=== PATIENT | male | born 1955 ===

== ENCOUNTER 2017-03-12 15:16 | Emergency (ER) | payer MEDICAID ==
--- NOTE | 2017-03-12 16:25 | C.PDOC ---
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 He has never had urinary retention in the past, however reports a history of trouble urinating recently. Pt drank a lot for an US this morning at [facility], ordered by Dr. Warner, and was unable to urinate since. No back pain, fever, or other complaint. Has an appointment with urologist later this month. Patient has a history of HTN and reports that he has been compliant with his regimen. Time Seen by Provider: 03/12/17 16:06 Chief Complaint (Nursing): Male Genitourinary History Per: Patient History/Exam Limitations: no limitations Onset/Duration Of Symptoms: Hrs (5) Current Symptoms Are (Timing): Still Present Severity: Moderate Quality Of Discomfort: Pressure Associated Symptoms: Urinary Symptoms Alleviating Factors: None Recent travel outside of the [place]: No Additional History Per: Patient Past Medical History Vital Signs: Last Vital Signs Temp 98.5 F 03/12/17 15:46 Pulse 79 03/12/17 15:46 Resp 19 03/12/17 15:46 BP 215/115 H 03/12/17 15:46 Pulse Ox 95 03/12/17 16:28 - Medical History PMH: Benign Prostatic Hyperplasia, HTN Surgical History: No Surg Hx Family History: States: Unknown Family Hx - Social History Hx Alcohol Use: No Hx Substance Use: No - Immunization History Hx Tetanus Toxoid Vaccination: No Hx Influenza Vaccination: No Hx Pneumococcal Vaccination: No Review Of Systems Except As Marked, All Systems Reviewed And Found Negative. Gastrointestinal: Positive for: Abdominal Pain Genitourinary: Positive for: Other (Unable to urinate) Physical Exam - Physical Exam Appears: Well, Non-toxic, Other (uncomfortable) Skin: Normal Color, Warm, Dry Head: Atraumatic, Normacephalic Eye(s): bilateral: Normal Inspection, EOMI Nose: Normal Oral Mucosa: Moist Neck: Normal ROM, Supple Chest: Symmetrical Cardiovascular: Rhythm Regular Respiratory: Normal Breath Sounds Gastrointestinal/Abdominal: Bowel Sounds (normal), Soft, Tenderness (suprapubic) , Distention (suprapubic), No Guarding, No Rebound Extremity: Normal ROM Neurological/Psych: Oriented x3 ED Course And Treatment O2 Sat by Pulse Oximetry: 95 Progress Note: Impression: Urinary retention. Plan: - Place hazel catheter. - UA. Upon placement of the catheter 1100 mL of urine was drained. He is feeling much better now. Case discussedwith Dr Bautista who notes pt can be discharged with a leg bag to . with his urologist. Disposition Doctor Will See Patient In The: Office Counseled Patient/Family Regarding: Studies Performed, Diagnosis, Need For Followup - Disposition Referrals: Zachariah Bautista MD [Staff Provider] - Deyanira Ng MD [Staff Provider] - Disposition: HOME/ ROUTINE Disposition Time: 17:18 Condition: STABLE Additional Instructions: Follow up with your primary medical doctor or clinic in 2-5 days for further evaluation. Take medications as prescribed. Return to the emergency department at any time if symptoms persist or worsen. Instructions: Urinary Retention in Men (ED) Forms: [facility] (Maori) Print Language: BOLIVIAN - Clinical Impression Clinical Impression: Urinary retention - Scribe Statement The provider has reviewed the documentation as recorded by the Scribe (Mayte Yi)
[2017-03-12 16:46] LABS: URINE BILIRUBIN NEGATIVE (NEGATIVE); URINE BLOOD 3+ (NEGATIVE); URINE CLARITY Clear (Clear); URINE COLOR Colorless (YELLOW); URINE GLUCOSE (UA) NORMAL (Normal); URINE LEUKOCYTE ESTERASE NEG Leu/uL (Negative); URINE NITRATE NEGATIVE (NEGATIVE); URINE PROTEIN NEGATIVE (NEGATIVE); URINE UROBILINOGEN NORMAL mg/dL (0.2-1.0)
[2017-03-12 18:31] VITALS: BP 158/78; PULSE 76; RESP 18; TEMP 97.9; O2SAT 98
== END 2017-03-12 18:31 | disposition home or self-care (01) ==
LOC: C.ER 15:16
DX: R33.9 Retention of urine, unspecified (principal)

== ENCOUNTER 2017-03-20 11:14 | Day surgery (SDC) | payer MEDICAID ==
[2017-03-19 10:08] VITALS: BMI 28.7
[2017-03-20 12:15] VITALS: BP 134/87; PULSE 103; RESP 20; TEMP 98.2; O2SAT 94
--- NOTE | 2017-03-20 20:44 | CON ---
DATE: HISTORY OF PRESENT ILLNESS: The patient was on the schedule for cystoscopy. When he came to the OR, he has a temperature 101 and severe lower abdominal pain and bleeding from the Perez. The Perez was not functioning with lower abdominal pain, so the Perez catheter changed and new Perez #16 inserted, drained 400 mL of cloudy urine. Urine sent for culture. The patient has temperature, which I will cancel the case for today for the cystoscope and I gave him Cipro and Ceftin. Urine culture done. If he has more temperature, we will send him to the ER. Otherwise, I will follow him to do procedure when he is more stable. Bernadette Lr MD
== END 2017-03-20 15:17 | disposition home or self-care (01) ==
LOC: C.SDS 11:14
PROVIDERS: ATTEND Specialist
DX: R33.9 Retention of urine, unspecified (principal); N40.1 Benign prostatic hyperplasia with lower urinary tract symptoms; Z53.8 Procedure and treatment not carried out for other reasons

== ENCOUNTER 2017-03-26 08:21 | Day surgery (SDC) | payer MEDICAID ==
[2017-03-19 10:07] VITALS: BMI 28.7
[2017-03-26] MEDS ORDERED: Midazolam 2 MG/2 ML VIAL ONE (09:52)
[2017-03-26] MEDS ORDERED: Propofol 10 mg/ml Inj (20 ML) ONE (09:52)
[2017-03-26] MEDS ORDERED: Lactated Ringer's 1,000 ML IV ONE (10:00)
[2017-03-26] MEDS ORDERED: Lidocaine 2% Jelly (Uro-Jet) ONE (10:02)
[2017-03-26] MEDS ORDERED: cefTRIAXone 2 GM in Sodium Chloride 0.9% 100 ML IVPB SCH (11:00)
[2017-03-26 11:06] LABS: BASO # 0.1 K/uL (0.0-0.2); BASO % 1.3 % (0.0-2.0); EOS # 0.1 K/uL (0.0-0.7); EOS % 1.4 % (0.0-4.0); HEMOGLOBIN 14.2 g/dL (12.0-18.0); LYMPH % 19.3 % (20.0-40.0); MEAN CELL VOLUME 90.9 fL (80.0-94.0); MEAN CORPUSCULAR HEMOGLOBIN 31.1 pg (27.0-31.0); MEAN CORPUSCULAR HGB CONC 34.2 g/dL (33.0-37.0); MEAN PLATELET VOLUME 8.5 fL (7.2-11.7); MONO # 0.5 K/uL (0.0-0.8); NEUT # 3.6 K/uL (1.8-7.0); RBC 4.57 Mil/uL (4.40-5.90); RED CELL DISTRIBUTION WIDTH 13.6 % (11.5-14.5); WHITE BLOOD COUNT 5.4 K/uL (4.8-10.8)
[2017-03-26 11:57] VITALS: RESP 16
[2017-03-26 12:35] VITALS: BP 139/84; PULSE 85; TEMP 98; O2SAT 98
--- NOTE | 2017-04-05 19:32 | OP ---
PROCEDURE DATE: PREOPERATIVE DIAGNOSES: Prostatic hypertrophy, urinary retention. POSTOPERATIVE DIAGNOSES: Prostatic hypertrophy, urinary retention. PROCEDURE: Cystoscopy. DESCRIPTION OF PROCEDURE: While the patient in lithotomy position, genitalia prepped and draped in sterile fashion. The patient was given Rocephin 2 g. Cysto done which revealed the urethra normal, prostate obstruction by bilateral lobe enlargement causing obstruction of the prostatic urethra with large median lobe. The bladder itself is trabeculated. The dome and lateral wall no tumor and no stone fragment seen. While the scope in the veru, it showed that the prostate totally occluded and he needs TURP. The patient tolerated the procedure well and transferred in stable condition. Bernadette Lr MD
== END 2017-03-26 13:50 | disposition home or self-care (01) ==
LOC: C.SDS 08:21 → C.9S 08:21 → UNDOADMIN 08:21 → EDSTATUS 09:15 → C.SDS 13:50
PROVIDERS: ATTEND Specialist
DX: N40.1 Benign prostatic hyperplasia with lower urinary tract symptoms (principal); R33.9 Retention of urine, unspecified; R31.0 Gross hematuria
CPT/HCPCS: 36415; 52000; 85025; 87086; J7120

== ENCOUNTER 2017-04-03 10:23 | Observation (INO) | payer MEDICAID ==
[2017-03-19 10:07] VITALS: BMI 28.7
[2017-04-03] MEDS ORDERED: Ciprofloxacin 400mg/200ml D5W 0 MG/0 ML BAG IVPB ONE (13:17)
[2017-04-03] MEDS ORDERED: Lidocaine 2% Jelly (Uro-Jet) ONE (13:18)
[2017-04-03] MEDS ORDERED: Lactated Ringer's 1,000 ML IV ONE (13:42)
[2017-04-03] MEDS ORDERED: Propofol 10 mg/ml Inj (20 ML) ONE ×2 (13:46→14:11)
[2017-04-03] MEDS ORDERED: Midazolam 2 MG/2 ML VIAL ONE (13:46)
[2017-04-03] MEDS: cefTRIAXone 2 GM in Sodium Chloride 0.9% 100 ML IVPB SCH (14:04)
[2017-04-03] MEDS ORDERED: Succinylcholine Chloride 20 mg/ml Syr (5 ml) IV ONE (14:04)
[2017-04-03] MEDS ORDERED: Rocuronium 10 mg/ml (10 ml) ONE (14:04)
[2017-04-03] MEDS ORDERED: Neostigmine Methylsulfate 3mg/3ml Syringe IV ONE (14:13)
[2017-04-03] MEDS ORDERED: Lactated Ringer's 1,000 ML IV SCH (15:15)
[2017-04-03] MEDS: Oxycodone/Acetaminophen 5/325 mg Tab PO PRN (18:38)
--- NOTE | 2017-04-03 23:12 | CP.PCM.HP ---
Past Patient History - Infectious Disease Hx of Infectious Diseases: None - Past Medical History & Family History Past Medical History?: Yes - Past Social History Smoking Status: Never Smoked - CARDIAC Hx Hypertension: Yes - PULMONARY Hx Respiratory Disorders: No - NEUROLOGICAL Hx Neurological Disorder: No - HEENT Hx HEENT Problems: No - RENAL Hx Chronic Kidney Disease: No - ENDOCRINE/METABOLIC Hx Endocrine Disorders: No - HEMATOLOGICAL/ONCOLOGICAL Hx Blood Disorders: No - INTEGUMENTARY Hx Dermatological Problems: No - MUSCULOSKELETAL/RHEUMATOLOGICAL Hx Musculoskeletal Disorders: No - GASTROINTESTINAL Hx Gastrointestinal Disorders: Yes (CONSTIPATION) Hx Gastroesophageal Reflux: Yes - GENITOURINARY/GYNECOLOGICAL Hx Genitourinary Disorders: Yes (urinary retention hazel to sgd) - PSYCHIATRIC Hx Psychophysiologic Disorder: No Hx Substance Use: No - SURGICAL HISTORY Hx Surgeries: Yes - ANESTHESIA Hx Anesthesia: Yes Hx Anesthesia Reactions: No Hx Malignant Hyperthermia: No Has any member of the family had a problem w/ anesthesia?: No Meds Allergies/Adverse Reactions: Allergies Allergy/AdvReac Type Severity Reaction Status Date / Time No Known Allergies Allergy Verified 03/12/17 15:45 Results - Vital Signs Recent Vital Signs: Last Vital Signs Temp 98.6 F 04/03/17 17:00 Pulse 78 04/03/17 17:00 Resp 16 04/03/17 17:00 BP 127/78 04/03/17 17:00 Pulse Ox 100 04/03/17 17:00
[2017-04-04 00:53] VITALS: RESP 20
--- NOTE | 2017-04-04 08:48 | CP.PCM.PN ---
Subjective - Date & Time of Evaluation Date of Evaluation: 04/04/17 Time of Evaluation: 08:00 Objective - Vital Signs/Intake and Output Vital Signs (last 24 hours): Temp Pulse Resp BP Pulse Ox 97.8 F 77 20 116/62 99 04/03/17 23:40 04/03/17 23:40 04/03/17 23:40 04/03/17 23:40 04/04/17 04:20 Intake and Output: 04/04/17 04/04/17 06:59 18:59 Intake Total 2050 3500 Output Total 3350 3750 Balance -1300 -250 - Medications Medications: Current Medications Ceftriaxone Sodium 2 gm/ (Sodium Chloride) 100 mls @ 100 mls/hr IVPB Q24H [facility] Last Admin: 04/03/17 14:04 Dose: 100 mls Lactated Ringer's (Lactated Ringer's) 1,000 mls @ 100 mls/hr IV .Q10H [facility] Last Admin: 04/04/17 01:49 Dose: 100 mls/hr Oxycodone/Acetaminophen (Percocet 5/325 Mg Tab) 1 tab PO Q4H PRN PRN Reason: Pain, severe (8-10) Stop: 04/06/17 15:09 Last Admin: 04/03/17 18:38 Dose: 1 tab Pneumococcal Polyvalent Vaccine (Pneumovax 23 Vaccine) 0.5 ml IM .ONCE ONE Stop: 04/04/17 10:01
[2017-04-04 08:54] VITALS: BP 126/71; PULSE 68; TEMP 98.7; O2SAT 98
[2017-04-04] MEDS ORDERED: Pneumococcal 23-Valent Vaccine IM ONE (10:00)
[2017-04-04] MEDS ORDERED: Influenza Vaccine 60 mcg/0.5 mL SYR (4YR UP) IM ONE (10:00)
[2017-04-04] MEDS: Oxycodone/Acetaminophen 5/325 mg Tab PO PRN ×2 (10:09→16:26)
[2017-04-04 12:08] LABS: BASO # 0.1 K/uL (0.0-0.2); BASO % 0.9 % (0.0-2.0); EOS # 0.1 K/uL (0.0-0.7); EOS % 1.2 % (0.0-4.0); HEMOGLOBIN 15.3 g/dL (12.0-18.0); LYMPH # 1.4 K/uL (1.0-4.3); LYMPH % 14.9 % (20.0-40.0); MEAN CELL VOLUME 90.4 fL (80.0-94.0); MEAN CORPUSCULAR HEMOGLOBIN 31.8 pg (27.0-31.0); MEAN CORPUSCULAR HGB CONC 35.2 g/dL (33.0-37.0); MEAN PLATELET VOLUME 8.6 fL (7.2-11.7); MONO % 10.9 % (0.0-10.0); NEUT # 6.8 K/uL (1.8-7.0); NEUT % 72.1 % (50.0-75.0); RBC 4.82 Mil/uL (4.40-5.90)
[2017-04-04 12:09] LABS: WHITE BLOOD COUNT 9.4 K/uL (4.8-10.8)
[2017-04-04] MEDS: cefTRIAXone 2 GM in Sodium Chloride 0.9% 100 ML IVPB SCH (14:15)
--- NOTE | 2017-04-04 14:53 | CP.PCM.PN ---
Subjective - Date & Time of Evaluation Date of Evaluation: 04/04/17 Time of Evaluation: 13:00 - Subjective Subjective: CHIEF METEOROLOGIST NOTES patient seen today , voiding without any problems after f/c discontinued s/p TURP yesterday and f/c removed today , seen by Dr. Lr , cleared fro discharge from urology standpoint if pt voids without any problems and f/u with Dr. Lr office in 1 week d/w Dr. Bautista, stable for discharge home today Objective - Vital Signs/Intake and Output Vital Signs (last 24 hours): Temp Pulse Resp BP Pulse Ox 98.7 F 68 20 126/71 98 04/04/17 08:52 04/04/17 08:52 04/04/17 08:52 04/04/17 08:52 04/04/17 08:52 Intake and Output: 04/04/17 04/04/17 06:59 18:59 Intake Total 2050 3500 Output Total 3350 3750 Balance -1300 -250 - Medications Medications: Current Medications Ceftriaxone Sodium 2 gm/ (Sodium Chloride) 100 mls @ 100 mls/hr IVPB Q24H [facility] Last Admin: 04/04/17 14:15 Dose: 100 mls/hr Lactated Ringer's (Lactated Ringer's) 1,000 mls @ 100 mls/hr IV .Q10H [facility] Last Admin: 04/04/17 01:49 Dose: 100 mls/hr Oxycodone/Acetaminophen (Percocet 5/325 Mg Tab) 1 tab PO Q4H PRN PRN Reason: Pain, severe (8-10) Stop: 04/06/17 15:09 Last Admin: 04/04/17 10:09 Dose: 1 tab - Labs Labs: 04/04/17 11:54
--- NOTE | 2017-04-06 02:58 | OP ---
PROCEDURE DATE: 04/03/2017 PREOPERATIVE DIAGNOSES: Urinary retention, prostatic hypertrophy with obstruction. POSTOPERATIVE DIAGNOSES: Urinary retention, prostatic hypertrophy with obstruction. PROCEDURE: Transurethral resection of the prostate. DESCRIPTION OF PROCEDURE: While the patient in lithotomy position and after starting general anesthesia, genitalia prepped and draped in sterile fashion. Urethra dilated. A #25 resectoscope sheath continuous flow inserted under direct vision to the bladder. The bladder trabeculated. The prostate median lobe and bilateral lobe enlargement causing obstruction, while the scope in the veru, total obstruction of the urethra. The bladder neck resected first. All the median lobe resected to the level of the bladder neck. Deep groove at 11 o'clock, another deep groove at 1 o'clock, all the lateral tissue, the dome and the floor resected to the level of the verumontanum. All the tissue irrigated out. All tissue fulgurated for any bleeders. At the end of the procedure, while the scope in the veru, the bladder neck could be seen easily. The tissue was irrigated out. There was no active bleeding. After filling the bladder, the scope removed, putting pressure showed good stream, #24 three-way Perez inserted and the patient transferred to the recovery room in stable condition. Bernadette Lr MD
== END 2017-04-04 17:41 | disposition home or self-care (01) ==
LOC: INTOOBSV 10:23 → C.9S 10:23 → UNDOADMOB 10:23 → C.6T 15:12 → C.9S 17:27
PROVIDERS: ADMIT Internal Medicine; ATTEND Internal Medicine
DX: N40.1 Benign prostatic hyperplasia with lower urinary tract symptoms (principal); R33.9 Retention of urine, unspecified; R31.0 Gross hematuria
CPT/HCPCS: 36415; 52648; 85025; 88305; G0378; J0696; J1170; J7120